=== PATIENT | male | born 1980 | race Caucasian/White ===

== ENCOUNTER → 2020-06-16 10:36 | Outpatient (BNVA) | payer BC, SELFPAY | PROVIDERS: Family Provider Nurse Practitioner Family; Visit Provider Nurse Practitioner Family | DX: R50.9 Fever, unspecified (principal); Z20.828 Contact with and (suspected) exposure to other viral communicable diseases | CPT/HCPCS: 87400; 87635 ==

== ENCOUNTER 2020-10-31 14:58 | Outpatient (CLI) | payer BC, SELFPAY ==
--- NOTE | 2020-10-31 15:15 | MR_ITS ---
WS: [id number] MRI RIGHT ANKLE NONCONTRAST TECHNIQUE: Sagittal proton density, sagittal STIR, axial proton density, axial T1, axial T2 fat sat, coronal proton density, coronal proton density fat sat, coronal T2 fat sat. CLINICAL INFORMATION: M25.571 - Pain in right ankle and joints of right foot COMPARISON: None. FINDINGS: Normal ankle mortise. Normal medial malleolus. Normal talar dome. No evidence of avascular necrosis. Chronic appearing well-corticated tiny avulsion at the tip of the lateral malleolus. No edema. Distal fibula is normal in appearance. Normal calcaneus. Normal talar calcaneal articulation. Normal cuboid . Distal Achilles is normal in appearance. Normal peroneus longus and brevis. Normal extensor and fle xor compartment tendons. Small ankle effusion. Normal plantar aponeurosis. Small amount of fluid along the anterolateral gutte r. Fluid and edema along the ATF suspicious for ligamentous injury. No normal fibers visualized. MR/MR ankle RT wo con* [id number] IMPRESSION: 1. Normal medial and lateral malleolus. Well-corticated avulsion at the tip la teral malleolus appears chronic. No bone marrow edema. 2. Small joint effusion with fluid in the anterolateral gutter. 3. High-grade tear involving the ATF with fluid and edema along the lateral an kle. This is in the area of palpable marker. 4. Normal talus and calcaneus. No avascular necrosis.
== END 2020-10-31 14:59 | disposition home or self-care (01) ==
LOC: RADSHAW 15:00
PROVIDERS: PCP Nurse Practitioner Family; Visit Provider Nurse Practitioner Family
DX: M25.571 Pain in right ankle and joints of right foot (principal); S96.911A Strain of unspecified muscle and tendon at ankle and foot level, right foot, initial encounter; X58.XXXA Exposure to other specified factors, initial encounter; M25.471 Effusion, right ankle
CPT/HCPCS: 73721

== ENCOUNTER → 2022-06-21 11:15 | Outpatient (BNVA) | payer BC, SELFPAY | PROVIDERS: PCP Nurse Practitioner Family; Visit Provider Nurse Practitioner Family | DX: N39.0 Urinary tract infection, site not specified (principal); R30.0 Dysuria; M54.9 Dorsalgia, unspecified; N52.9 Male erectile dysfunction, unspecified; N41.0 Acute prostatitis | CPT/HCPCS: 81000; 84153 ==

== ENCOUNTER → 2022-07-03 15:57 | Outpatient (BNVA) | payer BC, SELFPAY | PROVIDERS: PCP Nurse Practitioner Family; Visit Provider Nurse Practitioner Family | DX: N39.9 Disorder of urinary system, unspecified (principal); N52.9 Male erectile dysfunction, unspecified; N30.20 Other chronic cystitis without hematuria; M54.9 Dorsalgia, unspecified; N41.1 Chronic prostatitis | CPT/HCPCS: 81003 ==

== ENCOUNTER → 2022-08-19 15:22 | Outpatient (BNVA) | payer BC, SELFPAY | PROVIDERS: PCP Nurse Practitioner Family; Visit Provider Urology | DX: N41.1 Chronic prostatitis (principal); N52.9 Male erectile dysfunction, unspecified; M54.9 Dorsalgia, unspecified | CPT/HCPCS: 81003 ==

== ENCOUNTER → 2023-01-08 10:44 | Outpatient (BNVA) | payer BC, SELFPAY | PROVIDERS: PCP Nurse Practitioner Family; Visit Provider Nurse Practitioner Family | DX: E78.5 Hyperlipidemia, unspecified (principal); I10 Essential (primary) hypertension | CPT/HCPCS: 80053; 80061 ==

== ENCOUNTER → 2023-10-17 09:28 | Outpatient (BNVA) | payer BC, SELFPAY | PROVIDERS: PCP Nurse Practitioner Family; Visit Provider Nurse Practitioner Family | DX: Z12.5 Encounter for screening for malignant neoplasm of prostate (principal); E78.5 Hyperlipidemia, unspecified; I10 Essential (primary) hypertension | CPT/HCPCS: 80053; 80061; G0103 ==

== ENCOUNTER → 2024-12-17 11:51 | Outpatient (BNVA) | payer BC, SELFPAY | PROVIDERS: PCP Nurse Practitioner Family; Visit Provider Nurse Practitioner Family | DX: E78.5 Hyperlipidemia, unspecified (principal); I10 Essential (primary) hypertension | CPT/HCPCS: 80053; 80061 ==